=== PATIENT | male | born 1990 | race Caucasian/White ===

== ENCOUNTER 2018-10-10 14:36 | Inpatient (IN) | payer SELFPAY ==
[~2018-10-10] VITALS: Ht 177.8 cm; Wt 75.7 kg
[2018-10-10] VITALS (7 sets, daily range): BP systolic 102–132; BP diastolic 64–93
[2018-10-10] MEDS ORDERED: NS IV 1000 ML 1,000 ML IV ONE ×2 (15:21→15:47)
--- NOTE | 2018-10-10 15:28 | ED General ---
General Chief Complaint: Abdominal/GI Problems Stated Complaint: BLOATED,CONSTIPATED,BACK/ABD PAIN;LIGHT HEADED Nursing Triage Note: TO TRIAGE FROM URGENT CARE. COMPLAINS OF BEING BLOATED AND NOT HAVING A NORMAL BM FOR SEVERAL DAYS WITH MULTIPLE OTHER COMPLAINTS. Nursing Sepsis Screen: No Definite Risk Source of Information: Patient Exam Limitations: No Limitations History of Present Illness Date Seen by Provider: October 10, 2018 Time Seen by Provider: 15:08 Initial Comments This 28-year-old young man presents to the emergency room with numerous complaints. He has several symptoms that have developed over the past few days. They include fatigue, periumbilical abdominal discomfort, poor appetite, pain around the "left kidney", headache, nausea with 2 episodes of vomiting, difficulty producing bowel movements, and difficulty urinating. He reports using Vaseline and finger stimulation to produce bowel movements the last couple days. He also states difficulty urinating a couple days ago. He used finger stimulation of his prostate to encourage urination. He reports using Pepto-Bismol and a laxative to try to encourage bowel movement. He denies having problems with bowel movements in the past. Patient is notably tachycardic during assessment. He reports using a friend's Adderall before coming to the ER because of his fatigue. Allergies and Home Medications Allergies Coded Allergies: No Known Drug Allergies (Unverified , 10/10/18) Patient Home Medication List Home Medication List Reviewed: Yes Review of Systems Review of Systems Constitutional: see HPI EENTM: no symptoms reported Respiratory: no symptoms reported Cardiovascular: see HPI Gastrointestinal: see HPI Genitourinary: see HPI Musculoskeletal: no symptoms reported Skin: no symptoms reported Psychiatric/Neurological: See HPI Hematologic/Lymphatic: No Symptoms Reported Immunological/Allergic: no symptoms reported Past Yyivvhr-Ffxqed-Lqmzns Hx Past Med/Social Hx: Reviewed Nursing Past Med/Soc Hx Patient Social History Alcohol Use: Occasionally Uses Recreational Drug Use: No Smoking Status: Current Everyday Smoker Type Used: Cigars Recent Foreign Travel: No Contact w/Someone Who Travel: No Recent Infectious Disease Expo: No Recent Hopitalizations: No Immunizations Up To Date Tetanus Booster (TDap): Unknown PED Vaccines UTD: Yes Seasonal Allergies Seasonal Allergies: No Past Medical History Surgeries: No Respiratory: No Cardiac: No Neurological: No Genitourinary: No Gastrointestinal: No Musculoskeletal: No Endocrine: No HEENT: No Cancer: No Psychosocial: No Integumentary: No Blood Disorders: No Physical Exam Vital Signs Vital Signs - First Documented 10/10/18 14:48 Temp 97.9 Pulse 123 Resp 16 B/P (MAP) 122/90 (101) Pulse Ox 98 O2 Delivery Room Air Capillary Refill : Less Than 3 Seconds Height, Weight, BMI Height: 5'10.00" Weight: 168lbs. oz. 76.359832om; BMI Method:Stated General Appearance: No Apparent Distress, WD/WN HEENT: PERRL/EOMI, Normal ENT Inspection, Pharynx Normal Neck: Normal Inspection Respiratory: Lungs Clear, Normal Breath Sounds, No Accessory Muscle Use, No Respiratory Distress Cardiovascular: No Edema, No Murmur, Tachycardia (regular) Gastrointestinal: Normal Bowel Sounds, Soft; No Distended, No Guarding; Tenderness (periumbilical) Extremity: Normal Inspection, No Pedal Edema, Other (ecchymosis right hand) Neurologic/Psychiatric: Alert, Oriented x3, No Motor/Sensory Deficits, Normal Mood/Affect, traffic controller cable II-XII Norm as Tested Skin: Normal Color, Warm/Dry, Ecchymosis (right hand), Other (capillary refill 3-5 seconds and the fingers) Focused Exam Lactate Level 10/10/18 16:02: Lactic Acid Level 1.46 Lactic Acid Level Laboratory Tests Test 10/10/18 16:02 Lactic Acid Level 1.46 MMOL/L (0.50-2.00) Progress/Results/Core Measures Suspected Sepsis Recent Fever Within 48 Hours: No Infection Criteria Present: Suspected New Infection New/Unexplained Altered Menta: No Sepsis Screen: No Definite Risk SIRS Temperature:97.9 Pulse: 123 Respiratory Rate: 16 Laboratory Tests 10/10/18 15:03: White Blood Count 14.0H Blood Pressure 122 /90 Mean: 101 10/10/18 16:02: Lactic Acid Level 1.46 Laboratory Tests 10/10/18 15:03: Creatinine 1.52H, Platelet Count 140, Total Bilirubin 1.1H Results/Orders Lab Results Laboratory Tests Test 10/10/18 14:59 10/10/18 15:03 10/10/18 16:02 Range/Units Urine Color TEZ H Urine Clarity SLIGHTLY CLOUDY Urine pH 6 5-9 Urine Specific [place] 1.015 L 1.016-1.022 Urine Protein 4+ NEGATIVE Urine Glucose (UA) NEGATIVE NEGATIVE Urine Ketones 3+ H NEGATIVE Urine Nitrite NEGATIVE NEGATIVE Urine Bilirubin NEGATIVE NEGATIVE Urine Urobilinogen NORMAL NORMAL MG/DL Urine Leukocyte Esterase 3+ H NEGATIVE Urine RBC (Auto) 5+ H NEGATIVE Urine RBC 5-10 H /HPF Urine WBC TNTC H /HPF Urine Crystals NONE /LPF Urine Bacteria MODERATE H /HPF Urine Casts NONE /LPF Urine Mucus NEGATIVE /LPF Urine Culture Indicated YES Urine Opiates Screen NEGATIVE NEGATIVE Urine Oxycodone Screen NEGATIVE NEGATIVE Urine Methadone Screen NEGATIVE NEGATIVE Urine Propoxyphene Screen NEGATIVE NEGATIVE Urine Barbiturates Screen NEGATIVE NEGATIVE Ur Tricyclic Antidepressants Screen NEGATIVE NEGATIVE Urine Phencyclidine Screen NEGATIVE NEGATIVE Urine Amphetamines Screen POSITIVE H NEGATIVE Urine Methamphetamines Screen POSITIVE H NEGATIVE Urine Benzodiazepines Screen NEGATIVE NEGATIVE Urine Cocaine Screen NEGATIVE NEGATIVE Urine Cannabinoids Screen NEGATIVE NEGATIVE White Blood Count 14.0 H 4.3-11.0 10^3/uL Red Blood Count 5.54 4.35-5.85 10^6/uL Hemoglobin 15.7 13.3-17.7 G/DL Hematocrit 44 40-54 % Mean Corpuscular Volume 79 L 80-99 FL Mean Corpuscular Hemoglobin 28 25-34 PG Mean Corpuscular Hemoglobin Concent 36 32-36 G/DL Red Cell Distribution Width 13.0 10.0-14.5 % Platelet Count 140 130-400 10^3/uL Mean Platelet Volume 10.7 H 7.4-10.4 FL Neutrophils (%) (Auto) 90 H 42-75 % Lymphocytes (%) (Auto) 2 L 12-44 % Monocytes (%) (Auto) 8 0-12 % Eosinophils (%) (Auto) 0 0-10 % Basophils (%) (Auto) 0 0-10 % Neutrophils # (Auto) 12.6 H 1.8-7.8 X 10^3 Lymphocytes # (Auto) 0.3 L 1.0-4.0 X 10^3 Monocytes # (Auto) 1.1 H 0.0-1.0 X 10^3 Eosinophils # (Auto) 0.0 0.0-0.3 10^3/uL Basophils # (Auto) 0.0 0.0-0.1 10^3/uL Neutrophils % (Manual) 86 % Lymphocytes % (Manual) 3 % Monocytes % (Manual) 8 % Eosinophils % (Manual) 0 % Basophils % (Manual) 0 % Band Neutrophils 3 % Microcytosis SLIGHT Sodium Level 120 *L 135-145 MMOL/L Potassium Level 4.4 3.6-5.0 MMOL/L Chloride Level 82 L 98-107 MMOL/L Carbon Dioxide Level 29 21-32 MMOL/L Anion Gap 9 5-14 MMOL/L Blood Urea Nitrogen 23 H 7-18 MG/DL Creatinine 1.52 H 0.60-1.30 MG/DL Estimat Glomerular Filtration Rate 55 BUN/Creatinine Ratio 15 Glucose Level 90 70-105 MG/DL Calcium Level 10.1 8.5-10.1 MG/DL Corrected Calcium 10.3 H 8.5-10.1 MG/DL Magnesium Level 1.9 1.8-2.4 MG/DL Total Bilirubin 1.1 H 0.1-1.0 MG/DL Aspartate Amino Transf (AST/SGOT) 45 H 5-34 U/L Alanine Aminotransferase (ALT/SGPT) 55 0-55 U/L Alkaline Phosphatase 111 40-136 U/L C-Reactive Protein High Sensitivity 37.49 H 0.00-0.50 MG/DL Total Protein 7.4 6.4-8.2 GM/DL Albumin 3.7 3.2-4.5 GM/DL Lipase < 4 L 8-78 U/L TSH [place] Testing 0.60 0.35-4.94 UIU/ML Serum Alcohol < 10 <10 MG/DL Lactic Acid Level 1.46 0.50-2.00 MMOL/L My Orders Orders - DECLAN CLEMONS MD Alcohol (10/10/18 15:21) Cbc With Automated Diff (10/10/18 15:21) Comprehensive Metabolic Panel (10/10/18 15:21) Hs C Reactive Protein (10/10/18 15:21) Drug Screen Stat (Urine) (10/10/18 15:21) Lipase (10/10/18 15:21) Magnesium (10/10/18 15:21) Thyroid Analyzer (10/10/18 15:21) Ua Culture If Indicated (10/10/18 15:21) Ed Iv/Invasive Line Start (10/10/18 15:21) Ns Iv 1000 Ml (Sodium Chloride 0.9%) (10/10/18 15:21) Abdomen, Flat & Upright/Decub (10/10/18 15:21) Manual Differential (10/10/18 15:03) Urine Culture (10/10/18 14:59) Ns Iv 1000 Ml (Sodium Chloride 0.9%) (10/10/18 15:47) Blood Culture (10/10/18 15:48) Lactic Acid Analyzer (10/10/18 15:48) Ct Abdomen/Pelvis W (10/10/18 15:50) Chlamydia Trachomatis Urine (10/10/18 15:51) Neis Kojo Dna Urine Test (10/10/18 15:51) Ceftriaxone For Iv Use (Rocephin For I (10/10/18 16:00) Ct Lumbar Spine Wo (10/10/18 15:59) Iohexol Injection (Omnipaque 350 Mg/Ml 1 (10/10/18 16:15) Received Contrast (Hold Metformin- Contr (10/10/18 16:15) Doxycycline Injection (Vibramycin Inject (10/10/18 17:00) Medications Given in ED Current Medications Medications Dose Ordered Sig/Elayne Route Start Time Stop Time Status Last Admin Dose Admin Ceftriaxone Sodium 1000 mg/ Sterile Water 10 ml @ 200 mls/hr ONCE ONCE IV 10/10/18 16:00 10/10/18 16:02 DC 10/10/18 17:10 200 MLS/HR Doxycycline Hyclate 100 mg/ Sodium Chloride 100 ml @ 100 mls/hr ONCE ONCE IV 10/10/18 17:00 10/10/18 17:59 DC 10/10/18 17:40 100 MLS/HR Sodium Chloride 1,000 ml @ 0 mls/hr Q0M ONCE IV 10/10/18 15:21 10/10/18 15:23 DC 10/10/18 15:33 1,000 MLS/HR Sodium Chloride 1,000 ml @ 0 mls/hr Q0M ONCE IV 10/10/18 15:47 10/10/18 15:48 DC 10/10/18 16:00 1,000 MLS/HR Vital Signs/I&O 10/10/18 10/10/18 14:48 17:52 Temp 97.9 Pulse 123 121 Resp 16 20 B/P (MAP) 122/90 (101) 126/97 (107) Pulse Ox 98 100 O2 Delivery Room Air Room Air Capillary Refill : Less Than 3 Seconds Blood Pressure Mean: 101 Progress Note #1: Time: 16:18 Progress Note Patient was found to have evidence of sepsis. UA suggestive of urinary tract infection. He has tachycardia and leukocytosis. A second liter of IV fluid has been ordered. Blood cultures and lactic acid have been ordered as well. Initial antibiotic therapy will be with Rocephin. CT of the abdomen and pelvis is being ordered for further evaluation of abdominal pain and abnormal abdominal x-ray. Progress Note #2: Time: 17:14 Progress Note Patient is receiving a 2 L IV normal saline bolus. CT revealed a significant left sided pyelonephritis. Rocephin is now infusing. Patient will also receive doxycycline to cover for STI's as well. Patient also has ecchymosis of the right hand noted. He states that is bruising from punching a wall. He denies any pain in the hand. CT of the lumbar spine was obtained to rule out any cord compression due to patient's bowel and bladder symptoms. No acute findings were identified. Diagnostic Imaging Diagonstic Imaging: Xray Plain Films/CT/US/NM/MRI: abdomen, pelvis Comments Abdominal x-ray viewed by me and report reviewed. See report below: NAME: DAVID MCCULLOUGH [facility] REC#: [id number] PT STATUS: REG ER : 1990 PHYSICIAN: DECLAN CLEMONS MD ADMIT DATE: 10/10/18/ER Draft Date of Exam:10/10/18 ABDOMEN, FLAT UPRIGHT/DECUB INDICATION: Constipation and severe bloating. Time of exam 3:40 p.m. COMPARISON: No prior studies are available for comparison. FINDINGS: There is moderate gaseous distention to the colon, particularly the hepatic flexure and transverse colon. Small bowel loops do not appear to be appreciably dilated, however, there are scattered air-fluid levels present. No definite wall thickening or pneumatosis is seen. There is no free air or pathologic calcifications. IMPRESSION: Nonspecific bowel gas pattern with moderate gaseous distention to the colon as well as scattered air-fluid levels in the small bowel. CT may be useful for further evaluation. Dictated on workstation # [id number] Dict: 10/10/18 1556 Trans: 10/10/18 1559 [facility] [id number] Interpreted by: CARLOS ALBERTO MANNING MD Diagonstic Imaging: Xray Plain Films/CT/US/NM/MRI: other (lumbar spine) Comments CT viewed by me and report reviewed. See report below: NAME: DAVID MCCULLOUGH [facility] REC#: [id number] PT STATUS: REG ER : 1990 PHYSICIAN: DECLAN CLEMONS MD ADMIT DATE: 10/10/18/ER Draft Date of Exam:10/10/18 CT LUMBAR SPINE WO PROCEDURE: CT lumbar spine without contrast. TECHNIQUE: Multiple contiguous axial images were obtained through the lumbar spine without the use of intravenous contrast. Sagittal and coronal reformations were then performed. Auto Exposure Controls were utilized during the CT exam to meet ALARA standards for radiation dose reduction. INDICATION: Low back pain. FINDINGS: The curvature and alignment of the lumbar spine is normal. Vertebral body heights are well maintained. No fracture or subluxation is seen. There does appear to be dural ectasia in the sacral spinal canal. IMPRESSION: No acute bony abnormality is detected. Dictated on workstation # [id number] Dict: 10/10/18 1649 Trans: 10/10/18 1652 [id number] Interpreted by: CARLOS ALBERTO MANNING MD Departure Communication (Admissions) Time/Spoke to Admitting Phy: 17:05 Dr. Collins Impression Primary Impression: Sepsis Qualified Codes: A41.9 - Sepsis, unspecified organism Additional Impressions: Urinary tract infection Qualified Codes: N39.0 - Urinary tract infection, site not specified Abdominal pain Qualified Codes: R10.84 - Generalized abdominal pain Hyponatremia Pyelonephritis Disposition: ADMITTED INPATIENT Condition: Improved Admissions Decision to Admit Reason: Admit from ER (General) Decision to Admit/Date: October 10, 2018 Time/Decision to Admit Time: 15:50 DECLAN CLEMONS MD October 10, 2018 15:28
[2018-10-10 15:31] LABS: BILIRUBIN,URINE NEGATIVE (NEGATIVE); CLARITY,URINE SLIGHTLY CLOUDY; COLOR,URINE AMBER; GLUCOSE, URINE (UA) NEGATIVE (NEGATIVE); KETONES,URINE 3+ (NEGATIVE); LEUKOCYTE ESTERASE ,URINE 3+ (NEGATIVE); NITRITE,URINE NEGATIVE (NEGATIVE); PH,URINE 6 (5-9); PROTEIN,URINE 4+ (NEGATIVE); UROBILINOGEN,URINE NORMAL (NORMAL)
[2018-10-10 15:33] LABS: BASOPHILS % (AUTO) 0 % (0-10); EOSINOPHILS % (AUTO) 0 % (0-10); HEMATOCRIT 44 % (40-54); HEMOGLOBIN 15.7 G/DL (13.3-17.7); LYMPHOCYTES # (AUTO) 0.3 X 10^3 (1.0-4.0); LYMPHOCYTES % (AUTO) 2 % (12-44); MEAN CORPUSCULAR HEMOGLOBIN 28 PG (25-34); MEAN CORPUSCULAR HGB CONC 36 G/DL (32-36); MEAN CORPUSCULAR VOLUME 79 FL (80-99); MEAN PLATELET VOLUME 10.7 FL (7.4-10.4); MONOCYTES # (AUTO) 1.1 X 10^3 (0.0-1.0); MONOCYTES % (AUTO) 8 % (0-12); NEUTROPHILS # (AUTO) 12.6 X 10^3 (1.8-7.8); NEUTROPHILS % (AUTO) 90 % (42-75); PLATELET COUNT 140 10^3/uL (130-400)
[2018-10-10 15:42] LABS: BACTERIA,URINE MODERATE /HPF; WBC,URINE TNTC /HPF
[2018-10-10 15:45] LABS: ALANINE AMINOTRANSFERASE 55 U/L (0-55); ALBUMIN 3.7 GM/DL (3.2-4.5); ALKALINE PHOSPHATASE 111 U/L (40-136); BILIRUBIN,TOTAL 1.1 MG/DL (0.1-1.0); BUN/CREATININE RATIO 15; CALCIUM 10.1 MG/DL (8.5-10.1); CARBON DIOXIDE 29 MMOL/L (21-32); CHLORIDE 82 MMOL/L (98-107); CREATININE SERUM 1.52 MG/DL (0.60-1.30); GFR ESTIMATED 55; GLUCOSE 90 MG/DL (70-105); LIPASE < 4 U/L (8-78); MAGNESIUM 1.9 MG/DL (1.8-2.4); POTASSIUM 4.4 MMOL/L (3.6-5.0); TOTAL PROTEIN 7.4 GM/DL (6.4-8.2)
[2018-10-10 15:47] LABS: AMPHETAMINE SCREEN, URINE POSITIVE (NEGATIVE); BARBITURATE SCREEN URINE NEGATIVE (NEGATIVE); BENZODIAZEPINES SCREEN URINE NEGATIVE (NEGATIVE); CANNABINOID SCREEN, URINE NEGATIVE (NEGATIVE); COCAINE SCREEN URINE NEGATIVE (NEGATIVE); METHADONE STAT NEGATIVE (NEGATIVE); METHAMPHETAMINE SCREEN URINE S POSITIVE (NEGATIVE); OPIATE SCREEN URINE NEGATIVE (NEGATIVE); OXYCODONE STAT NEGATIVE (NEGATIVE); PROPOXYPHENE STAT NEGATIVE (NEGATIVE); TRICYCLIC ANTIDEPRESSANTS SCRE NEGATIVE (NEGATIVE)
[2018-10-10 15:54] LABS: BAND NEUTROPHILS 3 %; BASOPHILS % (MANUAL) 0 %; EOSINOPHILS % (MANUAL) 0 %; LYMPHOCYTES % (MANUAL) 3 %; MONOCYTES % (MANUAL) 8 %; NEUTROPHILS % (MANUAL) 86 %; SODIUM 120 MMOL/L (135-145)
[2018-10-10 15:55] LABS: MICROCYTOSIS SLIGHT
[2018-10-10] MEDS ORDERED: cefTRIAXone FOR IV USE 1,000 MG in WATER (STERILE) FOR INJECTION 10 ML IV ONE (16:00)
--- NOTE | 2018-10-10 16:00 | Diagnostic Imaging Report ---
INDICATION: Constipation and severe bloating. Time of exam 3:40 p.m. COMPARISON: No prior studies are available for comparison. FINDINGS: There is moderate gaseous distention to the colon, particularly the hepatic flexure and transverse colon. Small bowel loops do not appear to be appreciably dilated, however, there are scattered air-fluid levels present. No definite wall thickening or pneumatosis is seen. There is no free air or pathologic calcifications. IMPRESSION: Nonspecific bowel gas pattern with moderate gaseous distention to the colon as well as scattered air-fluid levels in the small bowel. CT may be useful for further evaluation. Dictated by: Dictated on workstation # [id number]
[2018-10-10] MEDS ORDERED: IOHEXOL 350 MG/ML 100 ML (OMNIPAQUE 350) VIAL IV ONE (16:15)
[2018-10-10] MEDS ORDERED: HOLD METFORMIN - RECEIVED CONTRAST 20 ML VIAL IV SCH (16:15)
--- NOTE | 2018-10-10 16:53 | Diagnostic Imaging Report ---
PROCEDURE: CT lumbar spine without contrast. TECHNIQUE: Multiple contiguous axial images were obtained through the lumbar spine without the use of intravenous contrast. Sagittal and coronal reformations were then performed. Auto Exposure Controls were utilized during the CT exam to meet ALARA standards for radiation dose reduction. INDICATION: Low back pain. FINDINGS: The curvature and alignment of the lumbar spine is normal. Vertebral body heights are well maintained. No fracture or subluxation is seen. There does appear to be dural ectasia in the sacral spinal canal. IMPRESSION: No acute bony abnormality is detected. Dictated by: Dictated on workstation # [id number]
[2018-10-10] MEDS ORDERED: DOXYCYCLINE INJECTION 100 MG in NS (IVPB) 100 ML IV ONE (17:00)
--- NOTE | 2018-10-10 17:16 | Diagnostic Imaging Report ---
PROCEDURE: CT abdomen and pelvis with contrast. TECHNIQUE: Multiple contiguous axial images were obtained through the abdomen and pelvis after administration of intravenous contrast. Auto Exposure Controls were utilized during the CT exam to meet ALARA standards for radiation dose reduction. INDICATION: Upper and bilateral flank pain. Nausea and vomiting. Constipation. COMPARISON: None. FINDINGS: Included portions of the lung bases are clear. CT abdomen: There is marked abnormal asymmetric appearance to the left kidney. Left kidney is abnormally enlarged and demonstrates multiple wedge-shaped perfusion abnormalities throughout. There is also abnormal asymmetric stranding of the perinephric and periureteral fat on the left. No renal or ureteral calculi are seen on either side. Additionally, there is no hydroureteronephrosis or other evidence of obstruction. There does appear to be a small cyst within the inferior pole of the right kidney. Right kidney has an otherwise normal appearance. The adrenal glands, spleen, pancreas, and liver have a normal CT appearance. There is no loculated fluid collection, free fluid, or free air within the abdomen. Several borderline prominent retroperitoneal lymph nodes are noted on the left. No other abnormal mesenteric or retroperitoneal adenopathy is seen. There is large amount of air and stool scattered throughout the colon. A few somewhat prominent-appearing fluid-filled loops of small bowel are also noted within the left hemiabdomen, but there is otherwise no convincing evidence of underlying obstruction. Normal appendix cannot be adequately identified, but there is no pericecal inflammation. Bony structures show no acute abnormalities. CT pelvis: Urinary bladder is grossly unremarkable. There is no loculated fluid collection, free fluid, or free air within the pelvis. No abnormal lymph nodes are seen. Bony structures show no acute abnormalities. IMPRESSION: 1. Abnormal appearance to the left kidney. Imaging appearance is felt to most strongly favor advanced pyelonephritis. Renal infarcts are also considered, but felt to be less likely. Clinical correlation recommended. 2. Few prominent loops of small bowel on the left. Conceivably, this could be on the basis of localized ileus. Obstruction is felt to be unlikely. Results were called to Dr. Ospina by Dr. Schneider at approximately 1700 hours on 10/10/2018. Dictated by: Dictated on workstation # [id number]
[2018-10-10] MEDS ORDERED: CATHETER FLUSH 10 ML SYR IV PRN (18:15)
[2018-10-10] MEDS ORDERED: ONDANSETRON 4 MG/2 ML (SDV) Z0FRAN IV PRN (18:15)
--- NOTE | 2018-10-10 18:41 | NUR ---
DAVID MCCULLOUGH admitted to room CU7-1, with an admitting diagnosis of PYLONEPHRITIS, HYPONATREMIA, AND SEPSIS , on 10/10/18 from ED VIA W/C, accompanied by ED STAFF.DAVID MCCULLOUGH introduced to surroundings, call light, bed controls, phone, TV, temperature control, lights, meal times, smoking policy, visitor policy, side rail policy, bathrooms and showers. Patient Rights given to patient in the handbook.DAVID MCCULLOUGH verbalizes understanding that [facility] is not responsible for the loss or damage to any personal effects or valuables that are kept in the patients posession during their hospitalization.
--- NOTE | 2018-10-10 18:43 | NUR ---
1830 DR ROBLES NOTIFIED OF PT'S ELEVATED HEART RATE PULSE NOTED IN THE 130-140'S. NEW ORDERS RECEIVED. SEE ORDER HX.
[2018-10-10] MEDS: NS IV 1000 ML 1,000 ML IV SCH (18:48)
[2018-10-10] MEDS: HYDROcodone/APAP 5 MG/325 MG (LORTAB) TAB PO PRN (19:52)
[2018-10-11] VITALS (7 sets, daily range): BP systolic 97–144; BP diastolic 54–88
[2018-10-11] MEDS: HYDROcodone/APAP 5 MG/325 MG (LORTAB) TAB PO PRN ×2 (00:48→11:43)
[2018-10-11] MEDS: NS IV 1000 ML 1,000 ML IV SCH ×5 (02:30→23:46)
[2018-10-11 03:53] LABS: BASOPHILS % (AUTO) 0 % (0-10); EOSINOPHILS % (AUTO) 0 % (0-10); HEMATOCRIT 37 % (40-54); HEMOGLOBIN 13.4 G/DL (13.3-17.7); LYMPHOCYTES # (AUTO) 0.2 X 10^3 (1.0-4.0); LYMPHOCYTES % (AUTO) 2 % (12-44); MEAN CORPUSCULAR HEMOGLOBIN 29 PG (25-34); MEAN CORPUSCULAR HGB CONC 36 G/DL (32-36); MEAN CORPUSCULAR VOLUME 79 FL (80-99); MEAN PLATELET VOLUME 10.8 FL (7.4-10.4); MONOCYTES # (AUTO) 1.1 X 10^3 (0.0-1.0); MONOCYTES % (AUTO) 12 % (0-12); NEUTROPHILS % (AUTO) 86 % (42-75); PLATELET COUNT 104 10^3/uL (130-400); RED CELL DISTRIBUTION WIDTH 12.7 % (10.0-14.5); WHITE BLOOD COUNT 9.4 10^3/uL (4.3-11.0)
[2018-10-11 04:16] LABS: ALANINE AMINOTRANSFERASE 43 U/L (0-55); ALBUMIN 2.9 GM/DL (3.2-4.5); ALKALINE PHOSPHATASE 101 U/L (40-136); BILIRUBIN,TOTAL 0.7 MG/DL (0.1-1.0); BUN/CREATININE RATIO 16; CALCIUM 8.8 MG/DL (8.5-10.1); CARBON DIOXIDE 20 MMOL/L (21-32); CHLORIDE 96 MMOL/L (98-107); GFR ESTIMATED > 60; GLUCOSE 87 MG/DL (70-105); POTASSIUM 3.6 MMOL/L (3.6-5.0); SODIUM 129 MMOL/L (135-145); TOTAL PROTEIN 5.7 GM/DL (6.4-8.2)
[2018-10-11] MEDS: DOXYCYCLINE 100 MG (VIBRAMYCIN) TABLET PO SCH ×2 (09:28→20:38)
--- NOTE | 2018-10-11 11:17 | NUR ---
REPORT RECEIVED FROM [facility] RNESTEBAN.
--- NOTE | 2018-10-11 11:35 | NUR ---
PATIENT BROUGHT TO ROOM VIA WHEELCHAIR WITH IV FLUIDS RUNNING. ACCOMPANIED BY SEWING PATTERN LAYOUT TECHNICIAN. PATIENT ORIENTED TO ROOM AND CALL LIGHT. VITAL SIGNS OBTAINED.
--- NOTE | 2018-10-11 14:41 | History & Physical-Hospitalist ---
History of Present Illness HPI/Chief Complaint The patient is a 28-year-old white male who presented to the emergency room last evening with complaints of fever and generalized weakness. After workup he was found to have evidence of pyelonephritis. He believes that this began after he experienced extreme constipation over the 2-3 days prior to his presentation here. He reported this was bad enough that he had to digitally remove stool. During this period he was then unable to empty his bladder. The lab called me earlier this morning stating that he was growing gram-negative rods from both urine and blood. His sodium was 120 in the emergency room and is 129 this morning. Source: patient Exam Limitations: no limitations Date Seen 10/11/18 Time Seen by a Provider: 14:39 Attending Physician Luis Daniel Robles MD PCP No,Local Physician Referring Physician Date of Admission October 10, 2018 at 17:05 Home Medications & Allergies Home Medications Reviewed patient Home Medication Reconciliation performed by pharmacy medication reconciliations forensic science technician and/or nursing. Patients Allergies have been reviewed. Allergies Allergies Coded Allergies No Known Drug Allergies (Unverified10/10/18) Past Rrbaezy-Icdarp-Wdnyaw Hx Past Med/Social Hx: Reviewed Nursing Past Med/Soc Hx Patient Social History Alcohol Use: Occasionally Uses Recreational Drug Use: No Smoking Status: Current Everyday Smoker Type Used: Cigars Recent Foreign Travel: No Contact w/other who traveled: No Recent Hopitalizations: No Recent Infectious Disease Expo: No Immunizations Up To Date Tetanus Booster (TDap): Unknown Pediatric: Yes Seasonal Allergies Seasonal Allergies: No Past Medical History History of Blood Disorders: No Review of Systems Constitutional: see HPI EENTM: no symptoms reported Respiratory: no symptoms reported Cardiovascular: no symptoms reported Gastrointestinal: constipation Genitourinary: see HPI Musculoskeletal: no symptoms reported Skin: no symptoms reported Psychiatric/Neurological: No Symptoms Reported Physical Exam Physical Exam Vital Signs Vital Signs - First Documented 10/10/18 14:48 Temp 97.9 Pulse 123 Resp 16 B/P (MAP) 122/90 (101) Pulse Ox 98 O2 Delivery Room Air Capillary Refill : Less Than 3 SecondsLess Than 3 Seconds Height, Weight, BMI Height: 5'10.00" Weight: 167lbs. 0.0oz. 75.728941ct; 24.0 BMI Method:Stated General Appearance: No Apparent Distress, WD/WN Eyes: Bilateral Eye Normal Inspection HEENT: Normal ENT Inspection Neck: Full Range of Motion, Normal Inspection, Non Tender Respiratory: Chest Non Tender, Lungs Clear, Normal Breath Sounds, No Accessory Muscle Use, No Respiratory Distress Cardiovascular: Regular Rate, Rhythm, No Edema, No Gallop, No JVD, No Murmur, Normal Peripheral Pulses Gastrointestinal: Normal Bowel Sounds, No Organomegaly, No Pulsatile Mass, Non Tender Extremity: Normal Capillary Refill, Normal Inspection, Normal Range of Motion Neurologic/Psychiatric: Alert, Oriented x3, No Motor/Sensory Deficits, Normal Mood/Affect, varnish cooker II-XII Norm as Tested Comments [place] skin. Has multiple pink blotches about arms belly and legs. These are not said to be itchy. Results Results/Procedures Labs Laboratory Tests 10/10/18 15:03 10/11/18 02:55 Patient resulted labs reviewed. Assessment/Plan Admission Diagnosis Pyelonephritis. 2.Klebsiella UTI/sepsis. 3.constipation Admission Status: Inpatient Order (span 2 midnights) Reason for Inpatient Admission: Will require greater than to midnight's of IV antibiotics. Clinical Quality Measures DVT/VTE Risk/Contraindication: Risk Factor Score Per Nursin RFS Level Per Nursing on Admit: 1=Low/No VTE PPX LUIS DANIEL ROBLES MD October 11, 2018 14:41
[2018-10-11] MEDS: ACETAMINOPHEN 325 MG TABLET PO PRN ×2 (15:55→20:38)
[2018-10-11] MEDS ORDERED: cefTRIAXone 1,000 MG IV (ROCEPHIN) VIAL ONE (16:25)
[2018-10-11] MEDS ORDERED: WATER (STERILE) FOR INJECTION 10 ML ONE (16:25)
[2018-10-11] MEDS: cefTRIAXone 1,000 MG/SWFI 10 ML IV PUSH IV SCH ×2 (16:35)
--- NOTE | 2018-10-11 17:00 | NUR ---
CALL RECEIVED FROM ICU ASSEMBLER PIANO WITH INFORMATION OF PATIENT'S HR >140. DR. ROBLES NOTIFIED.
[2018-10-12 00:39] VITALS: BP 135/76
[2018-10-12 04:00] VITALS: BP 133/81
[2018-10-12] MEDS: NS IV 1000 ML 1,000 ML IV SCH (05:52)
[2018-10-12] MEDS: HYDROcodone/APAP 5 MG/325 MG (LORTAB) TAB PO PRN ×2 (05:52→09:01)
[2018-10-12 06:06] LABS: BUN/CREATININE RATIO 13; CALCIUM 7.8 MG/DL (8.5-10.1); CARBON DIOXIDE 19 MMOL/L (21-32); CHLORIDE 102 MMOL/L (98-107); CREATININE SERUM 1.24 MG/DL (0.60-1.30); GFR ESTIMATED > 60; GLUCOSE 97 MG/DL (70-105); POTASSIUM 3.2 MMOL/L (3.6-5.0); SODIUM 129 MMOL/L (135-145)
[2018-10-12 08:35] VITALS: BP 129/70
--- NOTE | 2018-10-12 09:00 | NUR ---
PER NOC RN REPORT TO THIS RN PT SHOWERED DURING THE NIGHT 4-5 TIME AND PER NA PT UP SHOWERING THIS AM AGAIN -- ADVISED DR ROBLES
[2018-10-12] MEDS: DOXYCYCLINE 100 MG (VIBRAMYCIN) TABLET PO SCH (09:02)
[2018-10-12] MEDS ORDERED: CEFD300C3 PO (11:36)
--- NOTE | 2018-10-12 11:46 | Discharge Inst-Simple/Standard ---
Discharge Inst-Standard Discharge Medications New, Converted or Re-Newed RX: Transmitted to Pharmacy Patient Instructions/Follow Up Plan of Care/Instructions/FU: Take the Omnicef twice daily until gone. Activity as Tolerated: Yes Discharge Diet: No Restrictions Return to The Hospital For: Recurrence of symptoms Planned Outpatient Orders/Ref. Pneu Vac Indicated: Yes FEDERICO ROBLES MD October 12, 2018 11:46
[2018-10-12 11:49] VITALS: BP 129/81
[2018-10-12 12:00] VITALS: BP 129/81
--- NOTE | 2018-10-12 14:09 | NUR ---
PT HAS DISCHARGE PAPERS WAITING FOR FAMILY TO COME AND GET HIM
--- NOTE | 2018-10-12 16:21 | NUR ---
PT REFUSED VS -- HE HAS DC PAPERS AND IS STILL WAITING FOR FAMILY RIDE HOME
[2018-10-12] MEDS: cefTRIAXone 1,000 MG/SWFI 10 ML IV PUSH IV SCH ×2 (16:23)
[2018-10-12] MEDS: ACETAMINOPHEN 325 MG TABLET PO PRN (17:40)
--- NOTE | 2018-10-13 16:34 | Physician Query-Final Dx ---
Final Diagnosis Give Final Diagnosis Please give Final Diagnosis TERA MANNING October 13, 2018 16:34
== END 2018-10-12 21:12 | disposition home or self-care (01) | DRG 872 ==
LOC: ER 14:38 → ICU 17:05 → 4TH 10-11 11:30
PROVIDERS: ADMIT Internal Medicine; ATTEND Internal Medicine
DX: A41.59 Other Gram-negative sepsis (principal); N12 Tubulo-interstitial nephritis, not specified as acute or chronic; E87.1 Hypo-osmolality and hyponatremia; K59.00 Constipation, unspecified; R39.198 Other difficulties with micturition; R51 Headache; F17.290 Nicotine dependence, other tobacco product, uncomplicated; R53.83 Other fatigue; R63.0 Anorexia
CPT/HCPCS: 36415; 72131; 74019; 74177; 80048; 80053; 80306; 80320; 81000; 83605; 83690; 83735; 84443; 85007; 85025; 85027; 86141; 87040; 87077; 87088; 87186; 87491; 87591; 96361; 96365; 96375